=== PATIENT | male | born 1950 | race Caucasian/White ===

== ENCOUNTER 2023-01-31 12:41 | Outpatient (OUT) | payer MEDICARE, SELFPAY ==
--- NOTE | 2023-01-31 13:00 | RT_ITS ---
[facility] Test Date: 2023-01-31 Pat Name: JENNIFER COWAN Department: Room: - Gender: Male Double Surface Operator: Sierra Vernon RRT : 1950 Requested By: Maycol Martínez Order Number: [id number] Reading MD: Maycol Martínez Interpretive Statements Pulmonary function testing was completed according to ATS criteria. Findings were considered accurate and reproducible. Both pre- and post-bronchodilator values utilized for spirometry. Prior studies are not available for comparison. Spirometry (based on pre-bronchodilator values): -FEV1/FVC: Normal @ 41% -FEV1: Normal @ 62% -FVC: Normal @ 110% -There is no significant bronchodilator response. Lung volumes by plethysmography: -RV: Reduced @ 61% -TLC: Normal @ 89% Diffusion capacity: -DLCO: Normal @ 84% when corrected for Hb 13.3g/dL Flow-volume loop: -Moderate obstructive pattern Impressions: -Moderate obstruction on spirometry. Reduced RV, but normal TLC and DLCO. Study suggests COPD. Clinical correlation required. Electronically Signed On 02-05-2023 18:36:10 EDT by Maycol Martínez
[2023-01-31 13:08] LABS: Hemoglobin 13.3 g/dL (14.0-18.0)
[2023-01-31] MEDS: ALBUTEROL SULFATE 2.5 MG/3 ML VIAL NEB IH (14:09)
--- NOTE | 2023-01-31 14:40 | CT_ITS ---
The [address] [address] Patient Name: JENNIFER COWAN MRN: [id number] date: 1950 Sex: M Assigned Patient Location: CARD Current Patient Location: Accession/Order Number: [id number] Exam Date: 01/31/2023 14:50 Report Date: 02/01/2023 09:28 At the request of: CINDI PALM Procedure: CT chest high res EXAMINATION: CT chest high res HISTORY: Centrilobular Emphysema COMPARISON: No relevant comparison available. TECHNIQUE: Axial images were obtained at 10 mm intervals during inspiration and expiration in the supine and prone positions. No IV contrast given. Dose reduction techniques were achieved by using automated exposure control and/or adjustment of mA and/or kV according to patient size and/or use of iterative reconstruction technique. FINDINGS: LUNGS: Calcified tracheal bronchial tree with mild bibasilar bronchiectasis and mild peribronchial thickening. Moderate centrilobular and paraseptal emphysema with an upper lobe predominance. Some peripheral honeycombing with intralobular septal thickening primarily within the lower lobes. Few scattered ill-defined opacity/nodule partially visualized due to technique PLEURA: No mass, effusion, or pneumothorax. BRIA: No mass or adenopathy. MEDIASTINUM: No mass or adenopathy. CHEST WALL: No mass or axillary adenopathy LIMITED ABDOMEN: No suspicious findings. Limited images of the upper abdomen. OTHER: No cardiomegaly or pericardial effusion. Moderate coronary atherosclerosis CT/CT chest high res IMPRESSION: Stable pulmonary fibrosis, centrilobular and paraseptal emphysema and bronchiectasis Electronically authenticated by: CHRIS FERRIS Date: 02/01/2023 09:28
== END 2023-01-31 12:42 | disposition home or self-care (01) ==
LOC: CARD 12:47
PROVIDERS: Family Provider Family Medicine; PCP Family Medicine; Visit Provider Internal Medicine
DX: J43.2 Centrilobular emphysema (principal); J84.10 Pulmonary fibrosis, unspecified
CPT/HCPCS: 36415; 71250; 85018; 94060; 94726; 94729